=== PATIENT | female | born 1970 | race Caucasian/White ===

== ENCOUNTER → 2018-05-27 | Outpatient (CLI) | payer MEDICARE, MEDICAID | LOC: M RAD 07:14 | DX: M25.511 Pain in right shoulder (principal) | CPT/HCPCS: 73221 ==

== ENCOUNTER → 2019-09-10 | Outpatient (CLI) | payer MEDICARE, MEDICAID ==
--- NOTE | 2019-09-10 13:15 | REP ---
PA and lateral chest: Comparison is 02/05/2007. The lung vasquez are clear. The cardiac size is normal. The martin, mediastinum, and skeletal structures are unremarkable. Impression: Negative PA and lateral chest. There is no interval change. Electronically Signed by Antwan Gould MD 09/10/2019 01:07 P
--- NOTE | 2019-09-10 15:04 | REP ---
V/Q SCAN: Following the intravenous administration of 5.4 millicuries technetium 99m tagged MAA and the inhalation of 1 millicuries technetium of 99 M DTPA aerosol, multiple images of the lung vasquez are obtained in various projections. There is a small subsegmental matching ventilation perfusion defect in the left upper lobe laterally. No areas of V/Q mismatch are seen. IMPRESSION: Low probability of pulmonary embolism. Electronically Signed by Antwan Guerrero MD 09/10/2019 03:40 P
== END ==
LOC: M RAD 12:33
PROVIDERS: ATTEND Family Medicine
DX: I82.621 Acute embolism and thrombosis of deep veins of right upper extremity (principal)
CPT/HCPCS: 71046; 78582; A9540; A9567

== ENCOUNTER → 2021-05-18 | Outpatient (CLI) | payer MEDICARE, MEDICAID ==
[~2021-05-18] MED LIST: ASPI81TA86 PO; ATOR1TAB21 PO; BASA100I SC; CILO50TA PO; CYCL-707 PO; DETR4CAP PO; FISH1000 PO; JARD1TAB PO; JENT2.5T5 PO; LEVO-86 PO; LISI20TA33 PO; METF10004 PO; NAPR220C23 PO; OXYC20TA40 PO; PANT40TA29 PO; TIZA4CAP PO; TOLT4CAP3 PO; TRIA37.5 PO; TRUL0.5I SC; VASC1CAP2 PO; VOLT1GEL15 TOP; XARE20TA PO
== END ==
LOC: M LABSMTC 09:07
PROVIDERS: ATTEND Anesthesiology
DX: Z01.812 Encounter for preprocedural laboratory examination (principal); Z20.822 Contact with and (suspected) exposure to COVID-19

== ENCOUNTER 2021-05-23 08:03 | Day surgery (SDC) | payer MEDICARE, MEDICAID ==
[~2021-05-23] VITALS: Ht 165.1 cm; Wt 150.0 kg
[~2021-05-23 08:03] MED LIST changes: +LR 1,000 ML IV ONE; +ceFAZolin SOD 2 GM in IV 1 EA IV ONE
[2021-05-23] MEDS ORDERED: LIDOCAINE 1% SDV 30ML VIAL As Ordered ONE (10:25)
[2021-05-23] MEDS ORDERED: BUPIVACAINE HCL 0.5% 30 ML VIAL As Ordered ONE (10:25)
[2021-05-23] MEDS ORDERED: KETAMINE HCL 200 MG/20 ML VIAL As Ordered ONE (11:46)
[2021-05-23] MEDS ORDERED: fentaNYL 100 MCG/2 ML INJECTION (J3010) As Ordered ONE (11:46)
[2021-05-23] MEDS ORDERED: ONDANSETRON 4MG/2ML VIAL As Ordered ONE (11:46)
[2021-05-23] MEDS ORDERED: MIDAZOLAM INJ 2MG/2ML VIAL (J2250 PER 1MG) As Ordered ONE (11:46)
[2021-05-23] MEDS ORDERED: ACETAMINOPHEN 1000MG 100ML IV BTL (OFIRMEV) (J0131 PER 10MG) As Ordered ONE (11:46)
[2021-05-23] MEDS ORDERED: LIDOCAINE 2% 100MG/5ML SDV (FOR ANES.) As Ordered ONE (11:46)
[2021-05-23 12:40] VITALS: BP 130/28
[2021-05-23] MEDS ORDERED: LR 1,000 ML IV SCH (12:45)
[2021-05-23] MEDS ORDERED: fentaNYL 100 MCG/2 ML INJECTION (J3010) IV PRN (12:45)
[2021-05-23] MEDS ORDERED: PERCOCET 5MG/325MG TAB PO PRN (12:45)
[2021-05-23] MEDS ORDERED: ONDANSETRON 4MG/2ML VIAL IV PRN (12:45)
--- NOTE | 2021-05-23 13:59 | RO ---
OPERATIVE NOTE DATE OF OPERATION: 05/23/2021 PREOPERATIVE DIAGNOSIS: Painful hardware, right foot. POSTOPERATIVE DIAGNOSIS: Painful hardware, right foot. PROCEDURE: Right foot hardware removal. SURGEON: Dr. Reggie Levi DPM ELECTRICAL REPAIRER: None. ANESTHESIA: Moderate anesthesia care. PREOPERATIVE INJECTION: 18 mL of 1:1 mixture of 1% lidocaine, 0.5% Marcaine plain. ESTIMATED BLOOD LOSS: Minimal. MATERIALS: 4-0 Vicryl, 4-0 nylon. INJECTABLES: None. COMPLICATIONS: None. CONDITION: Stable. Filomena Pisano is a 51-year-old female who presents with painful hardware to her right foot. She presents today for surgical correction. Patient, side, and site were identified and marked in the preoperative area. Consent was reviewed and obtained. Risks, complications, and alternatives to the procedure were explained to the patient in detail, and all questions were answered. DESCRIPTION OF PROCEDURE: Patient was brought to the operating room and placed on the operating room table in the supine position. Monitored anesthesia care was delivered by the anesthesia team. Preoperative injection of 18 mL of 1:1 mixture of 1% lidocaine plain/0.5% Marcaine plain were injected into the right foot. Right foot was prepped and draped in normal sterile fashion. Tourniquet was applied to the right ankle and inflated 250 mmHg. Incision was made through the previous scar with a #15 blade. Dissection was carried to the bone. A rongeur was used to remove the overlying bone from the wire. Wire was identified and removed with pliers. The site was smoothed with a rasp and irrigated with normal saline. Closure was performed with 4-0 Vicryl and 4-0 nylon. Sterile dressing was applied. Tourniquet was deflated. Patient was brought to the PACU with vital signs stable. Neurovascular status is intact. She will be weightbearing as tolerated and followup in our office in 2 days.
== END 2021-05-23 12:50 | disposition home or self-care (01) ==
LOC: M SDC 08:03
PROVIDERS: ATTEND Podiatrist Foot & Ankle Surgery
DX: T84.84XA Pain due to internal orthopedic prosthetic devices, implants and grafts, initial encounter (principal); M79.671 Pain in right foot; E78.5 Hyperlipidemia, unspecified; E03.9 Hypothyroidism, unspecified; K21.9 Gastro-esophageal reflux disease without esophagitis; Z91.041 Radiographic dye allergy status; Z88.8 Allergy status to other drugs, medicaments and biological substances; Z86.718 Personal history of other venous thrombosis and embolism; Z79.01 Long term (current) use of anticoagulants; Z79.84 Long term (current) use of oral hypoglycemic drugs; G43.909 Migraine, unspecified, not intractable, without status migrainosus; Z87.891 Personal history of nicotine dependence; E66.9 Obesity, unspecified
CPT/HCPCS: 20680; J0131; J0690; J2250; J2405; J3010

== ENCOUNTER 2022-11-18 11:22 | Day surgery (SDC) | payer MEDICARE, MEDICAID ==
[~2022-11-18] VITALS: Ht 170.2 cm; Wt 147.4 kg
[~2022-11-18 11:22] MED LIST changes: +ATOR1TAB19 PO; -CILO50TA PO; +CILO50TA2 PO; +LEVO50TA5 PO; +LIDOCAINE 2% 100MG/5ML SDV (FOR ANES.) As Ordered ONE; -LR 1,000 ML IV ONE; +MYRB25TA PO; +NS 1,000 ML IV ONE; -ceFAZolin SOD 2 GM in IV 1 EA IV ONE; +propofoL 200 MG/20 ML VIAL As Ordered ONE
[2022-11-18] MEDS ORDERED: JARD1TAB PO (12:00)
[2022-11-18] MEDS ORDERED: fentaNYL 100 MCG/2 ML INJECTION As Ordered ONE (12:54)
[2022-11-18 13:50] VITALS: BP 148/76
== END 2022-11-18 14:00 | disposition home or self-care (01) ==
LOC: M OPP 11:22
PROVIDERS: ATTEND Internal Medicine Gastroenterology
DX: Z01.818 Encounter for other preprocedural examination (principal); E66.01 Morbid (severe) obesity due to excess calories; K29.70 Gastritis, unspecified, without bleeding; K31.89 Other diseases of stomach and duodenum; E11.9 Type 2 diabetes mellitus without complications; I45.6 Pre-excitation syndrome; E03.9 Hypothyroidism, unspecified; Z79.02 Long term (current) use of antithrombotics/antiplatelets; Z79.4 Long term (current) use of insulin; Z79.891 Long term (current) use of opiate analgesic; Z79.899 Other long term (current) drug therapy; Z88.8 Allergy status to other drugs, medicaments and biological substances; Z91.041 Radiographic dye allergy status; Z91.048 Other nonmedicinal substance allergy status; Z87.442 Personal history of urinary calculi; Z87.891 Personal history of nicotine dependence; Z80.1 Family history of malignant neoplasm of trachea, bronchus and lung; Z80.41 Family history of malignant neoplasm of ovary
CPT/HCPCS: 43239; 88305; J3010